=== PATIENT | female | born 1965 | race Caucasian/White ===

== ENCOUNTER 2018-07-15 13:08 | Inpatient (IN) | payer OTHER ==
[~2018-07-15] VITALS: Ht 154.9 cm; Wt 108.9 kg
[~2018-07-15 13:08] MED LIST: ABILIFY15 MG; ADVAIR 100-501 EACH; ALBUTEROL NEB; AMBIEN 10 MG TA10 MG; AMBIEN 10 MG TA10 MG PO; BONIVA150 MG PO; BUPROPION XL150 MG PO; BUSPAR30 MG; BUSPAR30 MG PO; BUSPIRONE PO; CALCIUM + VIT1 EACH; CELEXA 20 MG TA20 MG PO; CELEXA40 MG; CELEXA40 MG PO; CIPRO500 MG PO; CIPROFLOXACIN500 M1 PO; CYMBALTA30 MG; DAYPRO600 MG PO; DILAUDID 2 MG TA2 MG PO; ENDOCET 5-3251 EACH PO; EVISTA; FLONASE; IBUPROFEN 800800 M1 PO; KEFLEX500 MG PO; KEPPRA 500 MG500 M1 PO; KEPPRA XR750 MG PO; KEPPRA250 MG PO; LAMICTAL XR50 MG; LITHIUM CARBON300 M3 PO; LYRICA 75 MG CA75 MG; LYRICA100 MG; MORPHINE SULFAT30 M4 PO; MS CONTIN 30 MG30 MG; NEURONTIN600 MG PO; NORCO 5-325 TA1 EACH PO; OPANA ER10 MG; ORADENT 0.1% DEN5 G1; OXCARBAZEPINE300 M1 PO; OXCARBAZEPINE300 MG; OXCARBAZEPINE600 MG; OXYCONTIN10 M1 PO; OYSTER SHELL C1 EA14 PO; PARAFON FORTE500 M2 PO; PERCOCET 10-321 EACH; PERCOCET 10-321 EACH PO; PERCOCET PO; PREDNISONE 20 M20 M1; PRILOSEC 20 MG20 MG; PROAIR HFA8.5 GM; RISPERDAL 1 MG T1 MG; RISPERDAL4 MG PO; ROXICODONE15 MG; SULFACETAMIDE 115 M1; TIZANIDINE HCL4 MG; TOPROL XL25 MG PO; TRIAMCINOLONE10 G1; TRILEPTAL 300300 MG; VENTOLIN17 GM; VISTARIL 25 MG25 M1; WELLBUTRIN SR150 MG PO; WELLBUTRIN XL150 M1 PO; WELLBUTRIN XL300 M1 PO; XANAX 0.25 MG0.25 MG PO; ZANTAC PO; ZOFRAN ODT4 MG PO
[2018-07-15 13:40] VITALS: BP 152/84
[2018-07-15 15:12] LABS: ABSOLUTE NEUTROPHILS 4.5 thou/uL (1.4-8.2); BASOPHILS 0.8 % (0.0-2.0); EOSINOPHILS 1.2 % (0.0-3.0); HEMATOCRIT 41.5 % (37.0-47.0); HEMOGLOBIN 14.2 gm/dL (12.0-15.0); LYMPHOCYTES 19.4 % (24.0-44.0); MCHC 34.3 g/dL (28.0-37.0); MCV 81.6 fL (80.0-100.0); MONOCYTES 5.7 % (1.0-8.0); PLATELET COUNT 247 thou/uL (150-400); POLYS 72.9 % (36.0-66.0); RBC 5.08 mil/uL (4.20-5.00); RDW 14.1 % (10.5-14.5); WBC 6.2 thou/uL (4.0-11.0)
[2018-07-15 15:20] LABS: CALCIUM 9.2 mg/dL (8.5-10.1); CREATININE 0.7 mg/dL (0.6-1.0)
[2018-07-15 15:27] LABS: ALBUMIN 3.6 g/dL (3.4-5.0); TOTAL BILIRUBIN 0.6 mg/dL (<0.1-1.0); TOTAL PROTEIN 7.3 g/dL (6.4-8.2)
[2018-07-15] MEDS ORDERED: ACID REDUCER75 MG PO (17:49)
[2018-07-15 17:56] VITALS: BP 138/68
[2018-07-15 19:08] VITALS: BP 138/68
[2018-07-16 03:34] VITALS: BP 130/61
[2018-07-16 05:08] LABS: HEMATOCRIT 41.3 % (37.0-47.0); HEMOGLOBIN 13.6 gm/dL (12.0-15.0); MCH 27.3 pg (26.0-34.0); MCHC 32.9 g/dL (28.0-37.0); MCV 82.8 fL (80.0-100.0); RBC 4.98 mil/uL (4.20-5.00); RDW 14.5 % (10.5-14.5); WBC 4.8 thou/uL (4.0-11.0)
[2018-07-16 05:14] LABS: CALCIUM 8.3 mg/dL (8.5-10.1); CREATININE 0.6 mg/dL (0.6-1.0)
[2018-07-16 07:38] VITALS: BP 131/68
[2018-07-16 16:03] VITALS: BP 136/76
[2018-07-16 19:01] VITALS: BP 123/68
[2018-07-17 03:48] VITALS: BP 129/77
[2018-07-17 07:10] VITALS: BP 116/76
[2018-07-17 10:18] VITALS: BP 116/76
--- NOTE | 2018-07-17 11:08 | EKG ---
[address] [address] ELECTROCARDIOGRAM REPORT Name: KRISTIE MARIA Room #: 450-P ADM IN M.R.#: [id number] Admission: 07/15/18 Attend Phys: Ramses Fuentes MD Discharge: Date of : 69 Report #: [id number] THIS REPORT FOR: //name// [facility] ED Test Date: 2018-07-15 Test Time: 14:38:54 Pat Name: KRISTIE MARIA Department: Room: 450 Gender: F Dietetic Aide: JAY : 1965 Requested By: Jus Anthony Order Number: [id number] MD: Kai Estrada Measurements Intervals [place] Rate: 60 P: MA: 184 QRS: -13 QRSD: 79 T: 28 QT: 404 QTc: 404 Interpretive Statements Atrial-paced rhythm Low voltage, precordial leads Compared to ECG 06/05/2016 16:10:17 T-wave abnormality no longer present Electronically Signed On 07-17-2018 11:08:07 [place] ATTENDANT by Kai Estrada [email or web address] <ELECTRONICALLY SIGNED> By: Kai Estrada MD 07/17/18 1108 [id number] 143 Kai Estrada MD /EPI
[2018-07-17 11:51] VITALS: BP 106/64
[2018-07-17 21:36] VITALS: BP 119/68
[2018-07-18 08:24] LABS: ABSOLUTE NEUTROPHILS 2.9 thou/uL (1.4-8.2); EOSINOPHILS 3.9 % (0.0-3.0); HEMATOCRIT 39.4 % (37.0-47.0); HEMOGLOBIN 12.9 gm/dL (12.0-15.0); LYMPHOCYTES 29.8 % (24.0-44.0); MCH 27.5 pg (26.0-34.0); MCHC 32.8 g/dL (28.0-37.0); MONOCYTES 7.6 % (1.0-8.0); PLATELET COUNT 245 thou/uL (150-400); POLYS 57.7 % (36.0-66.0); RBC 4.69 mil/uL (4.20-5.00); RDW 14.2 % (10.5-14.5); WBC 5.1 thou/uL (4.0-11.0)
[2018-07-18 08:45] VITALS: BP 101/63
[2018-07-18 08:59] LABS: PROTIME 9.4 Seconds (9.3-11.4)
[2018-07-18 12:49] VITALS: BP 116/70
[2018-07-18 20:08] VITALS: BP 99/64
[2018-07-19 07:08] LABS: ABSOLUTE NEUTROPHILS 3.4 thou/uL (1.4-8.2); EOSINOPHILS 4.1 % (0.0-3.0); HEMATOCRIT 37.5 % (37.0-47.0); HEMOGLOBIN 12.6 gm/dL (12.0-15.0); LYMPHOCYTES 28.2 % (24.0-44.0); MCH 27.7 pg (26.0-34.0); MCHC 33.6 g/dL (28.0-37.0); MCV 82.5 fL (80.0-100.0); MONOCYTES 6.4 % (1.0-8.0); PLATELET COUNT 236 thou/uL (150-400); POLYS 60.3 % (36.0-66.0); RBC 4.55 mil/uL (4.20-5.00); RDW 14.2 % (10.5-14.5); WBC 5.7 thou/uL (4.0-11.0)
[2018-07-19 07:18] LABS: CREATININE 0.6 mg/dL (0.6-1.0); POTASSIUM 4.4 mmol/L (3.5-5.1)
[2018-07-19 08:00] VITALS: BP 117/74
[2018-07-19 10:00] VITALS: BP 143/78
[2018-07-19 10:42] VITALS: BP 129/69
[2018-07-19] MEDS ORDERED: HYDROCODON-ACE1 EAC7 PO (10:42)
[2018-07-19 11:15] VITALS: BP 113/66
[2018-07-19 12:05] VITALS: BP 113/66
[2018-07-19 14:59] VITALS: BP 113/66
== END 2018-07-19 17:39 | disposition home or self-care (01) | DRG 515 ==
LOC: ER 13:08 → SICU 17:31 → EROBS 17:31 → 4W 17:31 → SICU 07-17 21:18
PROVIDERS: Hospitalist; Physician Assistant; ADMIT Hospitalist
DX: M48.54XA Collapsed vertebra, not elsewhere classified, thoracic region, initial encounter for fracture (principal); E43 Unspecified severe protein-calorie malnutrition; Z68.42 Body mass index [BMI] 45.0-49.9, adult; M48.04 Spinal stenosis, thoracic region; G40.909 Epilepsy, unspecified, not intractable, without status epilepticus; J45.909 Unspecified asthma, uncomplicated; E66.01 Morbid (severe) obesity due to excess calories; F32.9 Major depressive disorder, single episode, unspecified; Z86.19 Personal history of other infectious and parasitic diseases; Z98.51 Tubal ligation status; Z95.0 Presence of cardiac pacemaker; Z87.81 Personal history of (healed) traumatic fracture; Z88.8 Allergy status to other drugs, medicaments and biological substances; Z91.041 Radiographic dye allergy status; Z91.013 Allergy to seafood; Z79.899 Other long term (current) drug therapy
CPT/HCPCS: 10045; 10047; 15002

== ENCOUNTER 2018-11-11 14:58 | Inpatient (IN) | payer OTHER ==
[~2018-11-11] VITALS: Ht 154.9 cm; Wt 113.4 kg
--- NOTE | ~2018-11-11 | HC ---
[facility] [place] [address] CONSULTATION Name: KRISTIE MARIA Room #: 454-P [facility] IN M.R.#: [id number] Admission: 11/11/18 ������������������ Attend Phys: Anaid Gaston Discharge: 11/13/18 ������������������ Date of : 69 Report #: [id number] THIS REPORT FOR: //name// CC: [facility] physician/PCP Anaid Gaston DATE OF SERVICE: 11/13/2018 PRIMARY CARE PHYSICIAN: Jazmine Medina at [facility], nurse practitioner. HISTORY OF PRESENT ILLNESS: The patient is a 53-year-old female with a history of permanent pacemaker, presented with dizziness and orthostasis to the hospital. It was associated with very atypical chest pain. She was admitted and her cardiac markers are negative and this morning, she is feeling better. She was given IV fluids. She has had issues with labile blood pressures and blood pressures in the low 100s systolic. Sometimes it can go as high as well, but this is fairly rare. We had trialled her on beta blockers in the past for symptoms, but she did not take these on a regular basis. She would develop side effects. She denies orthopnea or PND. She has not been short of breath. She denies weight gain or edema. Cardiac: She denies overt syncope, just dizziness. There is no record of seizure activity. PAST MEDICAL HISTORY: She has chronic pain and is seen by painter helper sign for intractable pain. She has had numerous fractures apparently. ALLERGIES: SHE HAS ALLERGIES TO BETA BLOCKERS, IODINE, SHELLFISH. She has a permanent pacemaker, dual chamber device. She has a seizure disorder, hep C, tubal ligation, spinal cord stimulator, morbid obesity. Her device was implanted in 2011. REVIEW OF SYSTEMS: GENERAL: No fevers or chills. HEMATOLOGIC: No anemia or bleeding disorders. RENAL: No history of kidney failure. ENDOCRINE: She is not known to be a diabetic. CARDIOVASCULAR: Positive chest discomfort. She has had negative stress test in [address] [address] CONSULTATION Name: KRISTIE MARIA Room #: 454-P [facility] IN M.R.#: [id number] Admission: 11/11/18 ������������������ Attend Phys: Anaid Gaston Discharge: 11/13/18 ������������������ Date of : 69 Report #: [id number] the past. NEUROLOGIC: Denies headaches or blurry vision. SKIN: No rashes. EYES: Denies any blurred vision or loss of vision. THROAT: Denies any dysphagia. PHYSICAL EXAMINATION: VITAL SIGNS: Blood pressure this morning is 151/86, pulse is 95, respiratory rate 18. GENERAL: This is an obese, middle-aged woman. She is alert, pleasant, in no apparent distress. HEENT: Eyes, EOMs are intact. No facial asymmetry. NECK: Supple. No jugular venous distention. CARDIOVASCULAR: Regular. I cannot hear a murmur. LUNGS: Clear to auscultation. ABDOMEN: Soft, nontender. EXTREMITIES: No peripheral edema. SKIN: Warm and dry. PSYCHIATRIC: The patient has appropriate mood and affect. Electrocardiogram shows a paced rhythm with ventricular sensing with a heart rate of 60, blood pressure this morning is 151/86. LABS: Hemoglobin is 13.8, white blood cell count 5.3, platelet count is 264,000, hemoglobin 13.8. Sodium is 143, potassium 3.8, chloride is 108, BUN is 12, creatinine is 0.8. AST is 14, ALT is 15. Urine hCG was negative. Toxicology was negative. IMPRESSION: 1. Dizziness. 2. Orthostasis. 3. Permanent pacemaker. 4. Atypical chest pain. At this point in time, I think her symptoms are probably related to volume depletion. I recommend lifestyle modifications, but I will also have her take midodrine p.r.n. 5 mg. She has some degree of vasomotor instability based on her historical data. We will arrange for followup to see us in the next month or so. ��������������������������������������������� ���������������������������������������� By: ��������������������������������������������� [id number] Melvin Enamorado MD, FACC /nt
[2018-11-11 14:58] VITALS: BP 145/83
[~2018-11-11 14:58] MED LIST changes: +ACID REDUCER75 MG PO; +HYDROCODON-ACE1 EAC7 PO
[2018-11-11 15:33] LABS: URINE BILIRUBIN NEGATIVE (Negative); URINE BLOOD NEGATIVE (Negative); URINE CLARITY CLEAR; URINE COLOR YELLOW; URINE GLUCOSE-RANDOM* NEGATIVE (Negative); URINE KETONES NEGATIVE (Negative); URINE NITRITE-REFLEX NEGATIVE (Negative); URINE PROTEIN (DIPSTICK) NEGATIVE (Negative); URINE SPECIFIC GRAVITY <= 1.005 (1.005-1.035); URINE UROBILINOGEN 0.2 E.U./dl (0.2-1.0)
[2018-11-11 15:34] LABS: URINE LEUKOCYTES-REFLEX 2+ (Negative)
[2018-11-11 15:35] LABS: ABSOLUTE NEUTROPHILS 4.1 thou/uL (1.4-8.2); BASOPHILS 0.7 % (0.0-2.0); EOSINOPHILS 0.5 % (0.0-3.0); HEMATOCRIT 41.7 % (37.0-47.0); HEMOGLOBIN 13.8 gm/dL (12.0-15.0); LYMPHOCYTES 16.8 % (24.0-44.0); MCH 27.5 pg (26.0-34.0); MCV 83.5 fL (80.0-100.0); MONOCYTES 4.5 % (1.0-8.0); PLATELET COUNT 264 thou/uL (150-400); POLYS 77.5 % (36.0-66.0); RDW 14.3 % (10.5-14.5); WBC 5.3 thou/uL (4.0-11.0)
[2018-11-11 15:42] LABS: CALCIUM 10.2 mg/dL (8.5-10.1); CREATININE 0.9 mg/dL (0.6-1.0); POTASSIUM 3.6 mmol/L (3.5-5.1)
[2018-11-11 15:48] LABS: ALBUMIN 3.9 g/dL (3.4-5.0); TOTAL BILIRUBIN 0.7 mg/dL (<0.1-1.0); TOTAL PROTEIN 7.6 g/dL (6.4-8.2)
[2018-11-11 15:58] LABS: CASTS None Seen /LPF (None Seen); SQUAMOUS 0-3 Few /LPF (0-3)
[2018-11-11 15:59] LABS: BACTERIA-REFLEX 1-9 Few /HPF (None Seen); CRYSTALS None Seen /LPF (None Seen); URINE RBC None Seen /HPF (0-2); URINE WBC-REFLEX 0-5 Rare /HPF (0-5)
[2018-11-11 19:39] VITALS: BP 172/67
[2018-11-11 20:25] VITALS: BP 172/67
[2018-11-12 04:55] VITALS: BP 132/52
[2018-11-12 05:12] LABS: CALCIUM 9.1 mg/dL (8.5-10.1); CREATININE 0.7 mg/dL (0.6-1.0); POTASSIUM 3.4 mmol/L (3.5-5.1)
[2018-11-12 07:21] VITALS: BP 146/71
--- NOTE | 2018-11-12 07:48 | NUR ---
PT ADMITTED WITH GENERALIZED WEAKNESS REPORTING GENERALIZED PAIN AND TAKING 800 MG IBUPROFEN WITH EFFECT, UP WITH SBA TO BATHROOM AWAITING URINE SPECIMEN FOR A UA BUT NOT OBTAINED OF YET. IV TO LEFT FOREARM INFUSING NS@125CC/HR. CONTINUE POC.
--- NOTE | 2018-11-12 10:33 | EKG ---
[place] [address] [email or web address] [place] [address] ELECTROCARDIOGRAM REPORT Name: KRISTIE MARIA Room #: 454-P ADM IN M.R.#: [id number] ������������������ Admission: 11/11/18 ������������������ Attend Phys: Anaid Gaston Discharge: ������������������ Date of : 69 Report #: [id number] ����������������������������������������������������������������� [id number] THIS REPORT FOR: //name// [facility] ED Test Date: 2018-11-11 Test Time: 15:31:15 Pat Name: KRISTIE MARIA Department: Room: [facility] Gender: F Drafting Detailer: JAY : 1965 Requested By: Dayanara Jenkins Order Number: [id number] MD: Melchor Jauregui Measurements Intervals [place] Rate: 61 P: MT: 234 QRS: -7 QRSD: 82 T: 10 QT: 402 QTc: 405 Interpretive Statements Atrial-paced complexes Prolonged MT interval Low voltage, precordial leads Baseline wander in lead(s) II,III,aVF Compared to ECG 07/15/2018 14:38:54 No change Electronically Signed On 11-12-2018 10:33:45 CDT by Melchor Jauregui [email or web address] ��������������������������������������������� <ELECTRONICALLY SIGNED> ���������������������������������������� By: Melchor Jauregui MD ��������������������������������������������� 11/12/18 1033 153 30 Melchor Jauregui MD /MARY
[2018-11-12 12:52] LABS: AMP/METHAMP Negative (Negative); BARBITURATES Negative (Negative); BENZODIAZEPINES Negative (Negative); COCAINE Negative (Negative); METHADONE Negative (Negative); OPIATES POSITIVE (Negative); PCP Negative (Negative)
[2018-11-12 15:07] VITALS: BP 130/56
--- NOTE | 2018-11-12 17:19 | NUR ---
PT A&OX4, VSS, NO SIGNS OF DISTRESS. PT HAD A HEADACHE EARLIER IN SHIFT AND WAS GIVEN TYLENOL. PT HAS BEEN RESTING IN BED, MOM CAME TO VISIT. NO COMPLAINTS OF DIZZINESS. STANDBY ASSIST TO BATHROOM. FALL PRECAUTIONS IN PLACE, WILL CONTINUE TO MONITOR.
[2018-11-12 19:37] VITALS: BP 126/56
[2018-11-13 03:30] VITALS: BP 151/86
[2018-11-13 04:20] LABS: ALBUMIN 3.2 g/dL (3.4-5.0); CALCIUM 8.9 mg/dL (8.5-10.1); CREATININE 0.8 mg/dL (0.6-1.0); POTASSIUM 3.8 mmol/L (3.5-5.1)
[2018-11-13 08:00] VITALS: BP 135/73
[2018-11-13] MEDS ORDERED: MIDODRINE HCL 55 M1 PO (10:03)
--- NOTE | 2018-11-13 10:58 | NUR ---
PT ADMITTED RELATED TO GENERALIZED WEAKNESS. CM REVIEWED CHART AND SPOKE WITH CARE TEAM. CM MET WITH PT AT BEDSIDE THIS DAY. PT IS A&O X4. CM ROLE INTRODUCED PT PT INDICATED SHE HAD BEEN LIVING IN A HOUSE WITH 2 FRIENDS AND ONE OF THEIR HUSBANDS. PT INDICATED SHE HAS 17 STEPS TO MAIN LIVING LEVEL. PT INDICATED SHE HAS A FWW, CANE, AND WHEELCHAIR TO ASSIST WITH MOBILITY PARACHUTE REPAIRER. PT SEES DR. LOLA DAS LOAD OUT SUPERVISOR. PT INDICATED SHE PLANS TO RETURN HOME ONCE MEDICALLY STABLE. CM TO FOLLOW INDICATED WITH DC PLANNING.
[2018-11-13 16:00] VITALS: BP 138/67
[2018-11-13 16:24] VITALS: BP 135/73
--- NOTE | 2018-11-13 17:33 | NUR ---
Assume pt care this am, pt is steady when ambulating from bed to commode. Pt had not complained of any dizzyness the mutiple times she had to go to the toilet. PT and OT worked with the pt and had no issues. No issues or complaints noted during this shift. DC orders given, instructions and prescriptions given to the pt. IV removed, awaiting molded goods spot picker for the pt.
== END 2018-11-13 18:23 | disposition home or self-care (01) | DRG 149 ==
LOC: ER 14:58 → EROBS 19:16 → 4W 19:16
PROVIDERS: Hospitalist; Nurse Practitioner Family; Physician Assistant; ADMIT Hospitalist
DX: R42 Dizziness and giddiness (principal); N39.0 Urinary tract infection, site not specified; Z68.42 Body mass index [BMI] 45.0-49.9, adult; B19.20 Unspecified viral hepatitis C without hepatic coma; J45.909 Unspecified asthma, uncomplicated; F41.9 Anxiety disorder, unspecified; F31.9 Bipolar disorder, unspecified; G40.909 Epilepsy, unspecified, not intractable, without status epilepticus; M54.9 Dorsalgia, unspecified; G89.29 Other chronic pain; E87.6 Hypokalemia; E66.01 Morbid (severe) obesity due to excess calories; Z95.0 Presence of cardiac pacemaker; Z87.81 Personal history of (healed) traumatic fracture; Z79.899 Other long term (current) drug therapy; Z88.8 Allergy status to other drugs, medicaments and biological substances; Z91.041 Radiographic dye allergy status; Z91.013 Allergy to seafood
CPT/HCPCS: 10045

== ENCOUNTER 2019-02-15 05:49 | Day surgery (SDC) | payer OTHER ==
[~2019-02-15] VITALS: Ht 154.9 cm; Wt 114.8 kg
[~2019-02-15 05:49] MED LIST changes: +BACLOFEN; +BREO ELLIPTA 21 EACH INH; +CALCIUM + D3 E1 EACH PO; +CYMBALTA30 MG PO; +CYMBALTA60 MG PO; +DEPAKOTE ER250 MG PO; +DUPIXENT300 MG/2 M PO; +HYDROXYZINE HCL25 M1 PO; +MIDODRINE HCL 55 M1 PO; +MORPHINE; -PROAIR HFA8.5 GM; +PROAIR HFA8.5 GM INH; +RANITIDINE HCL300 MG PO; +REMERON15 MG PO; +TRIAMCINOLONE A80 G2 TOP; +VITAMIN D350000 UNIT PO; +WELLBUTRIN XL150 MG PO; +ZYPREXA 10 MG T10 MG PO
[2019-02-15 07:00] VITALS: BP 134/79
--- NOTE | 2019-02-19 16:20 | O ---
[facility] [place] [address] OPERATIVE REPORT Name: KRISTIE MARIA Room #: DEP [facility].#: [id number] Admission: 02/15/19 ������������������ Attend Phys: Jordan Coe MD Discharge: 02/15/19 ������������������ Date of : 69 Report #: [id number] THIS REPORT FOR: //name// CC: Les Eldridge MD [facility] physician/PCP HANNY Yu MD DATE OF SERVICE: 02/15/2019 SURGEON: Jordan Coe MD PREOPERATIVE DIAGNOSIS: Bilateral nasal lacrimal duct obstruction. POSTOPERATIVE DIAGNOSIS: Bilateral nasal lacrimal duct obstruction. OPERATION PERFORMED: Bilateral endoscopic dacryoplasty with silicone intubation. ANESTHESIA: General. COMPLICATIONS: None. INDICATIONS FOR SURGERY: This patient has acquired bilateral nasal lacrimal duct stenosis with chronic tearing and discharge, both eyes. The current procedures are undertaken in order to improve the patient's level of lacrimal outflow and visual clarity. Informed consent was obtained to include but not limited to the potential risks for damage to the eye, loss of vision, bleeding, infection, failure to improve the problem and need for further surgery. DESCRIPTION OF OPERATION: The patient was taken to the operating room, where general anesthesia was administered. The medial canthi were anesthetized with 2% Xylocaine with epinephrine mixed with equal parts of 0.75% Marcaine with Wydase. The lateral jhaveri of the nose were then bilaterally injected with the same anesthetic mixture. The nose was packed with Afrin-soaked cottonoids. The patient was then prepped and draped in the usual sterile fashion. A moist compress was placed on the left eye while attention was turned to the right side. The superior and inferior puncta were then atraumatically dilated with a punctum dilator. A size 0 lacrimal probe was then passed through the superior canalicular system and through the stenosed nasal lacrimal duct. The nasal packing was removed and the endoscope was brought into the field. [facility] [address] [place] [address] OPERATIVE REPORT Name: KRISTIE MARIA Room #: DEP [facility].#: [id number] Admission: 02/15/19 ������������������ Attend Phys: Jordan Coe MD Discharge: 02/15/19 ������������������ Date of : 69 Report #: [id number] turbinate was gently infractured with a Hecker periosteal elevator to allow visualization of the inferior meatus in the area of the opening of the valve of Hasner in the nose. The probe was found and confirmed to be in the proper location. It was removed and subsequently replaced with a size 1 and a size 2 Villalpando probe, which also had their passage confirmed endoscopically to be in the proper location. A 3 by 15 LacriCatheter was lubricated with a small quantity of ophthalmic antibiotic ointment. The LacriCatheter was then passed through the superior canalicular system and the stenosed nasal lacrimal duct. The LacriCatheter was confirmed to be in the proper location endoscopically intranasally in the inferior meatus. The LacriCatheter was inflated to 9 atmospheres for 90 seconds and deflated. The catheter was then inflated to 9 atmospheres for 60 seconds. The catheter was then withdrawn to the proximal black ring. It was then inflated to 9 atmospheres for 90 seconds. The balloon was then deflated and reinflated to 9 atmospheres for 60 seconds. The balloon was the aspirated and withdrawn to the distal black ring. It was then inflated to 9 atmospheres for 90 seconds. The balloon was deflated and reinflated to 9 atmospheres for 60 seconds. The balloon was then deflated and vigorously aspirated as it was withdrawn through the superior canalicular system. A Alas tube was then passed through the superior canalicular system and out the dilated duct. The Alas tube was secured under the inferior turbinate in the inferior meatus with a Alas hook and retrieved endoscopically. The Alas tube was then passed through the inferior canalicular system in a similar fashion and was retrieved endoscopically in the nose atraumatically. The Alas tube was then secured to itself with 3 square throws and then to the lateral wall of the nose with a 5-0 Prolene suture. Attention was then turned to the other side, where the same procedure was performed. Antibiotic steroid drops were then placed in both eyes. A small quantity of ophthalmic antibiotic ointment was placed on the Alas tube. The patient was then transported to the recovery area with no anesthetic or operative complications being noted. ��������������������������������������������� <ELECTRONICALLY SIGNED> ���������������������������������������� By: Jordan Coe MD ��������������������������������������������� 02/19/19 1620 0756 0827 Jordan Coe MD /nt
== END 2019-02-15 08:55 | disposition home or self-care (01) ==
LOC: TBA 05:49 → OR 05:49 → TBA 05:50 → OR 08:55
DX: H04.553 Acquired stenosis of bilateral nasolacrimal duct (principal); G47.30 Sleep apnea, unspecified; J45.909 Unspecified asthma, uncomplicated; M54.5 Low back pain; G89.29 Other chronic pain; F41.9 Anxiety disorder, unspecified; F31.9 Bipolar disorder, unspecified; F20.9 Schizophrenia, unspecified; Z95.0 Presence of cardiac pacemaker; Z86.19 Personal history of other infectious and parasitic diseases; Z98.890 Other specified postprocedural states; Z98.51 Tubal ligation status; Z79.899 Other long term (current) drug therapy; Z87.440 Personal history of urinary (tract) infections; Z88.8 Allergy status to other drugs, medicaments and biological substances; Z91.041 Radiographic dye allergy status
CPT/HCPCS: 50010; 50101; 50261; 50386; 50398; 51777; 56528; 62110; 62900; 64037; 70005